=== PATIENT | female | born 1965 | race Caucasian/White ===

== ENCOUNTER 2017-07-30 13:09 | Inpatient (IN) ==
[2017-07-30] MEDS ORDERED: 0.9 % Sodium Chloride 1,000 ML IVC ONE ×3 (15:15→16:44)
[2017-07-30] MEDS ORDERED: Ipratropium/Albuterol Neb 3 ML IH ONE (15:15)
[2017-07-30] MEDS ORDERED: methylPREDNISolone 125 MG/2 ML VIAL IVP ONE (15:15)
[2017-07-30 15:39] LABS: Basophils % 0.2 %; Eosinophils # 0.1 K/mcL (0.0-0.6); Eosinophils % 0.6 %; Hematocrit 36.4 % (35.3-44.9); Hemoglobin 11.8 g/dL (11.5-15.4); Immature Granulocytes % 0.8 % (0-4); Immature Platelets 2.6 % (1.1-6.1); Lymphocytes # 1.6 K/mcL (0.6-4.6); Lymphocytes % 8.2 %; Mean Corpuscular HGB Conc 32.4 g/dL (31.6-35.5); Mean Corpuscular Hemoglobin 31.1 pg (28.0-33.3); Mean Platelet Volume 9.1 fL (9.4-12.4); Monocytes # 1.6 K/mcL (0.0-1.3); Monocytes % 8.6 %; Neutrophils # 15.5 K/mcL (1.6-8.9); Nucleated Red Blood Cells 0.1 /100 WBC (0); Platelet Count 361 K/mcL (140-400); Red Blood Count 3.79 M/mcL (3.82-4.97); Red Cell Distribution Width 12.9 % (11.5-14.5); Segmented Neutrophils % 81.6 %
[2017-07-30 15:54] LABS: Bilirubin,Urine Negative (Negative); Blood,Urine Trace (Negative); Clarity,Urine Clear (Clear); Color,Urine Yellow (Yellow); Glucose,Urine (UA) Normal (Normal); Ketones,Urine Negative (Negative); Leukocyte Esterase,Urine Negative (Negative); Nitrite,Urine Negative (Negative); Protein,Urine Negative (Neg-Trace); Specific Gravity,Urine 1.007 (1.010-1.025); Urobilinogen,Urine Normal (Normal)
[2017-07-30 15:55] LABS: BUN/Creatinine Ratio 11 (6-26); Blood Urea Nitrogen 8 mg/dL (7-20); Calcium 9.8 mg/dL (8.6-10.8); Carbon Dioxide 32 mEq/L (19-29); Chloride 95 mEq/L (98-109); Glucose 159 mg/dL (70-99); Osmolality,Calculated 286 (280-300); Potassium 3.2 mEq/L (3.5-4.5); Sodium 137 mEq/L (136-145); eGFR For African Americans > 60 (> 60); eGFR For Non-African Americans > 60 (> 60)
[2017-07-30 15:56] LABS: Bacteria,Urine None Seen per hpf (None-Few); Hyaline Casts,Urine None Seen per lpf (None-Few); RBC,Urine 0-3 per hpf (0-3); Squamous Epithelial Cell,Urine Many per lpf (None-Few); WBC,Urine 0-3 per hpf (0-3)
[2017-07-30] MEDS ORDERED: Azithromycin 500 MG in D5% in Water 250 ML IVPB ONE (16:46)
--- NOTE | 2017-07-30 17:19 | Emergency Department Note ---
Disposition Clinical Impression: Acute exacerbation of chronic obstructive airways disease Community acquired pneumonia Qualifiers: Laterality: unspecified laterality Qualified Code(s): J18.9 - Pneumonia, unspecified organism Disposition: Admitted As Inpatient Condition: Good Time of Disposition: 17:58 SOB HPI - General Chief Complaint: ED Shortness of Breath/Dyspnea Stated Complaint: acute bronchitis Time Seen by Provider: 07/30/17 15:04 Source: patient Mode of arrival: ambulatory Limitations: no limitations Nursing Notes Reviewed: Yes Vital Signs Reviewed: Yes - History of Present Illness Patient presents to the ED with the chief complaint of "I think I have bronchitis again." Patient states that she used to be a long-time smoker and quit about 3 years ago. Reports that while she was smoking. She frequently got bronchitis. Never required admission to the hospital per patient. States that about a week ago she started smoking again and since then she has developed cough and congestion. States that she feels exactly like she did before when she had bronchitis. She states that she is on several inhalers daily but has never been formally diagnosed with COPD. Reports that over the last week she has had gradually increasing shortness of breath and chest tightness. She has had subjective fever and chills. Her sputum is productive and is green to yellow. No associated chest pain other than the tightness, no abdominal pain, nausea, vomiting, diarrhea, no pain or swelling in her legs. No history of DVT, PE, or malignancy. No recent travel or surgeries. However, she did break her left foot and is in a postop shoe. - Related Data Previous Rx's Medication Instructions Recorded HYDROcodone/Acet 5/325 mg [[place] 1 tab PO Q6H PRN #10 tab 07/04/17 5-325 mg] Allergies Allergy/AdvReac Type Severity Reaction Status Date / Time No Known Allergies Allergy Verified 07/30/17 14:01 All systems ED: reviewed and negative except as stated. Cardiovascular: Denies: chest pain Respiratory: Reports: cough, dyspnea, wheezes Gastrointestinal: Denies: nausea Musculoskeletal: Denies: back pain Neurological: Denies: headache Past Medical History - Past Medical History Attestation: Yes The following information was validated with the patient. Source: patient Medical history: Reports: COPD, diabetes, hypertension Psychiatric history: Reports: no psych history [employer] history: Reports: non-contributory - Social History Smoking Status: Never smoker Smokeless Tobacco Status: No Alcohol use: Reports: rarely Drug use: Reports: none Physical Exam - General Limitations: no limitations General appearance: alert, in no apparent distress, obese - Eye Eye exam: Present: normal appearance, PERRL, EOMI - ENT ENT exam: normal exam, normal oropharynx, mucous membranes moist - Neck Neck exam: Present: normal inspection, full ROM, trachea midline - Chest Chest inspection: Present: normal inspection, symmetric chest wall rise - Respiratory Respiratory exam: Present: respiratory distress (Patient and mild respiratory distress, no accessory muscle use, very coarse breath sounds with rhonchi and wheezing throughout inspiratory and expiratory phases). Absent: normal lung sounds bilaterally - Cardiovascular Cardiovascular exam: Present: regular rate, normal rhythm, normal heart sounds - Abdominal Exam Abdominal exam: Present: soft, Non-Tender. Absent: tenderness, distention, guarding, rebound, rigidity - Extremities Exam Extremities exam: Present: normal inspection, full ROM. Absent: tenderness, pedal edema - Neurological Exam Neurological exam: Present: alert, oriented X3 - Psychiatric Psychiatric exam: Present: normal affect, normal mood - Skin Skin exam: Present: warm, dry, intact, normal color Course Course Narrative: Patient presenting with what she states is likely an exacerbation of bronchitis. However, she is borderline tachycardic and is hypoxic on room air. Started about a week ago. She does have infectious symptoms. Concern over pneumonia versus bronchitis versus PE. She is low risk, so we will use the d- dimer in addition to the rest of her workup. She will be given 2 nebs, steroids , likely will need antibiotics and admission in the hospital. D-dimer, troponin and BNP were negative. She does have a leukocytosis of 19, 000. Although her chest x-ray is clear, I do think that she clinically has pneumonia, so we will go ahead and treat her with Rocephin and azithromycin. She does also have a mildly elevated lactic acid, so we will continue with fluid resuscitation and recheck the lactic acid and a few hours. - Consultations Consultation #1: admitted to the hospitalist service Dr. Spencer Time: 17:22 Vital Signs Temperature 99.4 F 07/30/17 13:58 Pulse Rate 96 07/30/17 13:58 Respiratory Rate 20 07/30/17 13:58 Blood Pressure 115/76 07/30/17 13:58 O2 Sat by Pulse Oximetry 91 07/30/17 13:58 Temperature 99.4 F 07/30/17 13:58 Pulse Rate 94 07/30/17 17:35 Respiratory Rate 18 07/30/17 17:52 Blood Pressure 111/66 07/30/17 17:52 O2 Sat by Pulse Oximetry 92 07/30/17 17:35 Oxygen Delivery Oxygen Delivery Nasal Cannula Shortness of Breath/Dyspnea - Medical Records Medical records reviewed: Yes I reviewed the patient's medical records. - Lab Data Lab results reviewed: Yes I reviewed the patient's lab results. Result diagrams: 07/30/17 15:31 07/30/17 15:31 Lab Results 07/30/17 07/30/17 07/30/17 Range/Units 15:31 15:31 15:31 WBC 19.0 H (4.3-11.1) K/mcL RBC 3.79 L (3.82-4.97) M/mcL Hgb 11.8 (11.5-15.4) g/dL Hct 36.4 (35.3-44.9) % MCV 96.0 (83.0-100.0) fL MCH 31.1 (28.0-33.3) pg MCHC 32.4 (31.6-35.5) g/dL RDW 12.9 (11.5-14.5) % Plt Count 361 (140-400) K/mcL MPV 9.1 L (9.4-12.4) fL Immature Gran % 0.8 (0-4) % Seg Neutrophils % 81.6 % Lymphocytes % 8.2 % Monocytes % 8.6 % Eosinophils % 0.6 % Basophils % 0.2 % Neutrophils # 15.5 H (1.6-8.9) K/mcL Lymphocytes # 1.6 (0.6-4.6) K/mcL Monocytes # 1.6 H (0.0-1.3) K/mcL Eosinophils # 0.1 (0.0-0.6) K/mcL Basophils # 0.0 (0.0-0.2) K/mcL Nucleated RBCs/100 WBC 0.1 H (0) /100 WBC Immature Plt Fraction 2.6 (1.1-6.1) % D-Dimer 445 (0-500) ng/mLFEU Sodium 137 (136-145) mEq/L Potassium 3.2 L (3.5-4.5) mEq/L Chloride 95 L (98-109) mEq/L Carbon Dioxide 32 H (19-29) mEq/L BUN 8 (7-20) mg/dL Creatinine 0.76 (0.57-1.11) mg/dL Est GFR ( Amer) > 60 (> 60) Est GFR (Non-Af Amer) > 60 (> 60) BUN/Creatinine Ratio 11 (6-26) Glucose 159 H (70-99) mg/dL Calculated Osmolality 286 (280-300) Lactic Acid (0.5-2.2) mmol/L Calcium 9.8 (8.6-10.8) mg/dL Troponin I (0-0.03) ng/mL B-Natriuretic Peptide (0-100) pg/mL Urine Color (Yellow) Urine Clarity (Clear) Urine pH (5.0-8.0) pH Units Ur Specific [place] (1.010-1.025) Urine Protein (Neg-Trace) mg/dL Urine Glucose (UA) (Normal) mg/dL Urine Ketones (Negative) mg/dL Urine Blood (Negative) Urine Nitrite (Negative) Urine Bilirubin (Negative) Urine Urobilinogen (Normal) mg/dL Ur Leukocyte Esterase (Negative) Urine Microscopic RBC (0-3) per hpf Urine Microscopic WBC (0-3) per hpf Ur Squamous Epith Cells (None-Few) per lpf Urine Bacteria (None-Few) per hpf Hyaline Casts (None-Few) per lpf Ur Culture Indicated? (NO) 07/30/17 07/30/17 07/30/17 Range/Units 15:31 15:31 15:31 WBC (4.3-11.1) K/mcL RBC (3.82-4.97) M/mcL Hgb (11.5-15.4) g/dL Hct (35.3-44.9) % MCV (83.0-100.0) fL MCH (28.0-33.3) pg MCHC (31.6-35.5) g/dL RDW (11.5-14.5) % Plt Count (140-400) K/mcL MPV (9.4-12.4) fL Immature Gran % (0-4) % Seg Neutrophils % % Lymphocytes % % Monocytes % % Eosinophils % % Basophils % % Neutrophils # (1.6-8.9) K/mcL Lymphocytes # (0.6-4.6) K/mcL Monocytes # (0.0-1.3) K/mcL Eosinophils # (0.0-0.6) K/mcL Basophils # (0.0-0.2) K/mcL Nucleated RBCs/100 WBC (0) /100 WBC Immature Plt Fraction (1.1-6.1) % D-Dimer (0-500) ng/mLFEU Sodium (136-145) mEq/L Potassium (3.5-4.5) mEq/L Chloride (98-109) mEq/L Carbon Dioxide (19-29) mEq/L BUN (7-20) mg/dL Creatinine (0.57-1.11) mg/dL Est GFR ( Amer) (> 60) Est GFR (Non-Af Amer) (> 60) BUN/Creatinine Ratio (6-26) Glucose (70-99) mg/dL Calculated Osmolality (280-300) Lactic Acid 2.7 H (0.5-2.2) mmol/L Calcium (8.6-10.8) mg/dL Troponin I 0.01 (0-0.03) ng/mL B-Natriuretic Peptide 31 (0-100) pg/mL Urine Color (Yellow) Urine Clarity (Clear) Urine pH (5.0-8.0) pH Units Ur Specific [place] (1.010-1.025) Urine Protein (Neg-Trace) mg/dL Urine Glucose (UA) (Normal) mg/dL Urine Ketones (Negative) mg/dL Urine Blood (Negative) Urine Nitrite (Negative) Urine Bilirubin (Negative) Urine Urobilinogen (Normal) mg/dL Ur Leukocyte Esterase (Negative) Urine Microscopic RBC (0-3) per hpf Urine Microscopic WBC (0-3) per hpf Ur Squamous Epith Cells (None-Few) per lpf Urine Bacteria (None-Few) per hpf Hyaline Casts (None-Few) per lpf Ur Culture Indicated? (NO) 07/30/17 07/30/17 Range/Units 15:47 17:20 WBC (4.3-11.1) K/mcL RBC (3.82-4.97) M/mcL Hgb (11.5-15.4) g/dL Hct (35.3-44.9) % MCV (83.0-100.0) fL MCH (28.0-33.3) pg MCHC (31.6-35.5) g/dL RDW (11.5-14.5) % Plt Count (140-400) K/mcL MPV (9.4-12.4) fL Immature Gran % (0-4) % Seg Neutrophils % % Lymphocytes % % Monocytes % % Eosinophils % % Basophils % % Neutrophils # (1.6-8.9) K/mcL Lymphocytes # (0.6-4.6) K/mcL Monocytes # (0.0-1.3) K/mcL Eosinophils # (0.0-0.6) K/mcL Basophils # (0.0-0.2) K/mcL Nucleated RBCs/100 WBC (0) /100 WBC Immature Plt Fraction (1.1-6.1) % D-Dimer (0-500) ng/mLFEU Sodium (136-145) mEq/L Potassium (3.5-4.5) mEq/L Chloride (98-109) mEq/L Carbon Dioxide (19-29) mEq/L BUN (7-20) mg/dL Creatinine (0.57-1.11) mg/dL Est GFR ( Amer) (> 60) Est GFR (Non-Af Amer) (> 60) BUN/Creatinine Ratio (6-26) Glucose (70-99) mg/dL Calculated Osmolality (280-300) Lactic Acid 2.0 (0.5-2.2) mmol/L Calcium (8.6-10.8) mg/dL Troponin I (0-0.03) ng/mL B-Natriuretic Peptide (0-100) pg/mL Urine Color Yellow (Yellow) Urine Clarity Clear (Clear) Urine pH 7.0 (5.0-8.0) pH Units Ur Specific [place] 1.007 L (1.010-1.025) Urine Protein Negative (Neg-Trace) mg/dL Urine Glucose (UA) Normal (Normal) mg/dL Urine Ketones Negative (Negative) mg/dL Urine Blood Trace H (Negative) Urine Nitrite Negative (Negative) Urine Bilirubin Negative (Negative) Urine Urobilinogen Normal (Normal) mg/dL Ur Leukocyte Esterase Negative (Negative) Urine Microscopic RBC 0-3 (0-3) per hpf Urine Microscopic WBC 0-3 (0-3) per hpf Ur Squamous Epith Cells Many H (None-Few) per lpf Urine Bacteria None Seen (None-Few) per hpf Hyaline Casts None Seen (None-Few) per lpf Ur Culture Indicated? NO (NO) - Radiology Data Radiology results reviewed: Yes I reviewed the patient's radiology results. Chest X-Ray 07/30/17 14:24 IMPRESSION: No acute abnormality detected. D/ / Kiran Li MD / Kiran Li MD Interpreting Provider: Kiran Li MD Yael - Yael Situation: Demographics, MOA Background: Presenting Complaint, Relevant PMH, Meds, & Allergies Assessment: Vital Signs, Course and respsone to treatment, Exam Concerns, Patient/Family Expectation, Pertinant Lab Results, Outstanding Labs Recommendation: Barrier(s) to disposition, Recommendation based on pending studies, treatments, or consults [place]rad[place] Report Given to: Dr. Johanna [facility] Time: 17:58 Attestation Statement - Attestation Attestation: I examined this patient and my medical decision-making was reviewed with the Resident Physician, Dr. Iqbal. I agree with the documented findings, disposition and treatment plan as described except to the extent set forth below. Patient is a 51-year-old white female who presents to the emergency department with a one-week history of gradually worsening nasal congestion, postnasal drip , sore throat, and cough is now productive with yellow greenish sputum. Patient 's having some shortness of breath and chest tightness with these symptoms. Patient is longtime smoker who quit for a brief period of time and restarted about a week ago at the onset of these symptoms. Patient is on a number of inhalers for her breathing that are prescribed by her doctor but no formal diagnosis of COPD. Patient is hemodynamically stable on arrival, afebrile, but hypoxic on room air. Patient does not require home O2. I agree with the patient's physical exam findings as documented. She is coarse and wheezy throughout on auscultation with hoarse sounding voice but no respiratory distress. Patient received breathing treatments and steroids, IV fluids, laboratory evaluation as well as a 2 view chest x-ray. Patient with an elevated white count of 19 with a left shift and mild hyperglycemia. Patient's 2 view chest x-ray is within normal limits. Despite the normal chest x-ray despite this with the leukocytosis and clinical symptoms with hypoxia we will go ahead and treat her with antibiotics for community- acquired pneumonia continue supplemental oxygen and admit the patient secondary to her hypoxemia. Case was discussed with the hospitalist who accepted patient for admission.
[2017-07-30] MEDS ORDERED: Ondansetron 4 MG/2 ML VIAL IVP PRN (18:56)
[2017-07-30] MEDS ORDERED: *HR* HYDROcodone/Acet 5/325 mg TABLET PO PRN (18:56)
[2017-07-30] MEDS ORDERED: Naloxone 0.4 MG/ML INJ IVP PRN (18:56)
[2017-07-30] MEDS ORDERED: *HR* Morphine 2 MG/ML SYRINGE IVP PRN (18:56)
[2017-07-30] MEDS ORDERED: Benzonatate 100 MG CAPSULE PO PRN (19:03)
--- NOTE | 2017-07-30 19:16 | Internal Med History&Physical ---
<AntoniocharityDexter goldsmith - Last Filed: 07/30/17 20:14> Date of Encounter: 07/30/17 Time of Encounter: 18:00 Assessment and Plan (1) Sepsis Current visit: Yes Status: Acute Patient meets sepsis criteria based on WBC of 19.0, HR of 96 bpm, respiratory rate >20. Initial lactic acid 2.7. Patient received 3 boluses of IV fluids in the ED. Will continue IV 0.9 NS @ 125 mL/HR. Timed lactic acids ordered per sepsis protocol. IVPB ceftriaxone 1,000 mg and azithromycin 500 mg daily ordered for infection coverage. Blood cultures x2 and sputum culture ordered. Will adjust abx coverage based on culture results and sensitivity. Platelets 361. INR and APTT ordered. Monitor follow-up labs and patient for signs of increasing infection. Stair-step pain medication for pain management. Qualifiers: Sepsis type: sepsis due to unspecified organism Qualified Code(s): A41.9 - Sepsis, unspecified organism (2) Community acquired pneumonia Current visit: Yes Status: Acute Patient presents with acute SOB and dyspnea for past five days. CAP versus COPD exacerbation. WBC 19.0. CXR shows no acute process. CT of the chest ordered. IVPB ceftriaxone 1,000 mg daily and azithromycin 500 mg daily ordered for infection coverage. Sputum culture ordered. Will adjust abx coverage based on sputum and blood culture results. DuoNebs Q4. Tessalon 100 mg TID. Solumedrol 40 mg Q12. Supplemental O2 w/titration and SpO2 monitoring. Qualifiers: Laterality: unspecified laterality Qualified Code(s): J18.9 - Pneumonia, unspecified organism (3) Acute exacerbation of chronic obstructive airways disease Current visit: Yes Status: Acute Patient presents with SOB/dyspnea related to current dx of CAP versus COPD exacerbation. DuoNebs Q4 scheduled. Tessalon 100 mg TID for cough. Solumedrol 40 mg IVP Q12. Supplemental O2 with titration if SpO2 <92% and continuous SpO2 monitoring. Monitor VS and respiratory status. Will consider ABG if patient becomes hypoxic. (4) Elevated CO2 level Current visit: Yes Status: Acute Acute elevated CO2 level of 32 due to current hypoxemia related to CAP versus acute exacerbation of COPD. Supplemental O2 with titration and continuous SpO2 monitoring. Will consider BiPap and stat ABG if patient becomes hypoxic. Monitor patient's VS and respiratory status. (5) Hypokalemia Current visit: Yes Status: Acute Acute hypokalemia with potassium level of 3.2 on admission. PO potassium chloride 40 mEq daily to address hypokalemia and current hypochloremia level of 95. Monitor follow-up labs. (6) Elevated lactic acid level Current visit: Yes Status: Acute Lactic acid of 2.7 on admission. Timed lactic acids ordered per sepsis protocol. (7) Diabetes Current visit: Yes Status: Chronic Hx of chronic diabetes controlled by oral anti-hyperglycemic medications. Will hold patient's metformin and administer low-dose correction insulin sliding scale and hypoglycemic protocol. BG checks ACHS. A1c ordered in a.m. labs. Qualifiers: Diabetes mellitus type: type 2 Diabetes mellitus complication status: with unspecified complications Diabetes mellitus exterminator helper insulin use: without exterminator helper use Qualified Code(s): E11.8 - Type 2 diabetes mellitus with unspecified complications (8) HTN (hypertension) Current visit: Yes Status: Chronic Hx of chronic HTN but patient does not take anti-hypertensive medications at this time. Monitor patient and VS and will add Lopressor if patient becomes hypertensive. Qualifiers: Hypertension type: essential hypertension Qualified Code(s): I10 - Essential (primary) hypertension (9) DVT prophylaxis Current visit: Yes Status: Acute Heparin 5,000 units SQ Q8 for DVT prophylaxis. Monitor patient for signs of bleeding. Internal Medicine - H&P: HPI Chief complaint: Shortness of breath/Dyspnea Admitted From: Emergency Dept Plans for Post Hospital Care: Home History of present illness: Mrs. Wolfe is a 51 year old female with medical history of COPD, diabetes controlled with oral antihyperglycemic medications, and hypertension presents from the ED with chief complaint of shortness of breath and dyspnea for the past 5 days. Patient states she was a former smoker smoking 1-2 PPD and quit 4 years ago but recently started smoking 1-2 cigarettes per day. She reports that she's had these same symptoms before when she had bronchitis. She uses inhalers at home and takes breathing treatments PRN. Denies O2 use at home. Denies hx of PE or DVT. Reports sputum production that is greenish yellow. Patient reports SOB, fever, and chills but denies recent illness, nausea, vomiting, chest pain, palpitations, abdominal pain, unusual bleeding, vision changes, diarrhea, constipation, edema, lightheadedness, dizziness, pre-syncope, or syncope. On admission, patient's vital signs include temperature of 99.4F, heart rate 96 bpm , respiratory rate of 20, BP of 115/76, and SPO2 of 91% on 2 L nasal cannula. Pertinent abnormal labs include WBC of 19.0, potassium 3.2, chloride of 95, CO2 of 32, and glucose of 159. Initial lactic acid is 2.7 and troponin is 0.01. 1- View CXR today shows no acute abnormality. Upon assessment, patient is alert and oriented 3 and states she is having shortness of breath. Heart rate is tachycardic. Lungs have bilateral wheezes, more prominent in the right lung on auscultation. Patient also has productive cough. Patient is hemodynamically stable and reports moderate respiratory distress at this time information today from patient, family, chart review, and previous medical records. Mrs. Wolfe currently meet sepsis criteria based on WBC, tachycardia, and respiratory rate and is at high risk for sepsis and further morbidity based on current symptoms, risk factors, and history and will be placed as inpatient status. Time spent with patient and family >40 minutes. Past Med Surg Social Fam HX - Past Medical History Source: patient, old records reviewed, obtained from family Medical history: COPD, diabetes, hypertension Psychiatric history: no psych history - Social History Smoking Status: Former smoker Packs per day: 1-2 PPD, Reports she now smokes 1-2 cigarettes per day Smokeless Tobacco Status: No Alcohol use: rarely Drug use: none Occupational status: employed Current living situation: Home, With Family Activity Level: Independent ambulation, Very active Recent Out of Country Travel Within the Last 8 Weeks: No Exposure or Possible Exposure to Illness During Travel: No - Family History Father Race: Family Member Ethnicity: Non- Living Status: Age at : 32 Cause of : Accident Mother Race: Family Member Ethnicity: Non- Living Status: Still Living Hx Family Cardiac Disorders: Yes (Afib, HTN) Hx Family Endocrine Disorder: Yes (DM) Hx Family Neuromuscular Disorders: Yes (Murphy's Palsy) Brother Race: Family Member Ethnicity: Non- Living Status: Still Living Hx Family Cardiac Disorders: Yes (HTN) Hx Family Endocrine Disorder: Yes (DM) Grandmother Race: Family Member Ethnicity: Non- Living Status: (85) Age at : 85 Cause of : [place] Hx Family Cardiac Disorders: Yes ([place], HD, HTN) Grandfather Race: Family Member Ethnicity: Non- Living Status: Age at : 70 Cause of : [place] Hx Family Cardiac Disorders: Yes ([place], HTN, CAD) Hx Family Respiratory Disorders: Yes (COPD) Internal Medicine - H&P: Meds HYDROcodone/Acet 5/325 mg [Dillon 5-325 mg] 1 tab PO Q6H PRN #10 tab 07/04/17 [Rx ] 3 Allergy/AdvReac Type Severity Reaction Status Date / Time No Known Allergies Allergy Verified 07/30/17 14:01 All Systems PM: A 10-system review of systems was performed and is negative for pertinent findings except as documented above in the HPI. - Constitutional Constitutional: as per HPI, chills, fever(s), no night sweats - EENT Eyes: no change in vision, no discharge, no pain, no photophobia Ears: no ear discharge, no ear pain, no tinnitus Nose, mouth and throat: no dysphagia, no nasal discharge, no neck pain, no sore throat - Breasts Breasts: as per HPI - Cardiovascular Cardiovascular ROS IM: as per HPI, dyspnea, dyspnea on exertion, irregular heart rhythm (Tachycardia ), no chest pain, no diaphoresis, no lightheadedness, no palpitations, no syncope - Respiratory Respiratory: as per HPI, cough, dyspnea, dyspnea on exertion, wheezing, chest congestion, change in phlegm color - Gastrointestinal Gastrointestinal: no abdominal pain, no diarrhea, no hematemesis, no hematochezia, no melena, no nausea, no vomiting - Genitourinary Genitourinary: no change in urinary stream, no dysuria, no flank pain, no hematuria Menstruation: as per HPI - Musculoskeletal Musculoskeletal ROS IM: no numbness, no tingling - Integumentary Integumentary IM: no rash, no unusual bruising - Neurological Neurological ROS: no confusion, no convulsions, no focal weakness, no numbness, no tingling, no tremor(s) - Psychiatric Psychiatric: as per HPI - Endocrine Endocrine IM: as per HPI - Hematologic/Lymphatic Hematologic/Lymphatic: no easy bruising - Allergic/Immunologic Allergic/Immunologic: as per HPI - Constitutional Vitals: Temp Pulse Resp BP Pulse Ox 98.9 F 100 18 107/67 91 07/30/17 19:00 07/30/17 19:00 07/30/17 19:00 07/30/17 19:00 07/30/17 19:00 General appearance: Present: cooperative, mild distress (Mild to moderate respiratory distress), A&O X 3, pleasant, obese, answers questions appropriately - Head Head exam: Present: atraumatic, normocephalic - Eye Eye exam: Present: PERRL, conjuntiva pink, sclera anicteric Pupils: Present: PERRL - ENT ENT exam: Present: normal exam, normal external ear exam - Neck Neck exam general surgery: Present: normal inspection, supple, trachea midline. Absent: lymphadenopathy - Respiratory Respiratory exam: Present: accessory muscle use, wheezes (Bilaterally, worse in right lung lobes), tachypnea - Cardiovascular Cardiovascular exam: Present: tachycardia - GI/Abdominal GI/Abdominal exam: Present: normal bowel sounds, soft, no peritoneal signs. Absent: distended, tenderness - Rectal Rectal exam: Present: deferred - Additional comments: exam deferred. - Extremities Exam Extremities exam: Present: warm, radial pulses palpable and symmetrical. Absent : calf tenderness, cyanotic, pedal edema - Back Exam Back exam: Present: normal inspection - Neurological Exam Neurological exam: Present: CN II-XII intact, oriented X3, no focal deficits. Absent: pronater drift, facial droop, speech deficit - Psychiatric Psychiatric exam: Present: normal affect, normal mood - Skin Skin exam: Present: dry, intact Internal Med - H&P Results - Labs CBC & Chem 7: 07/30/17 15:31 07/30/17 15:31 - Diagnostic Studies Chest x-ray Additional comments: Impressions Chest X-Ray 07/30/17 14:24 IMPRESSION: No acute abnormality detected. D/ / Kiran Li MD / Kiran Li MD Interpreting Provider: Kiran Li MD <Temo Hernandez - Last Filed: 07/30/17 23:57> Date of Encounter: 07/30/17 Internal Medicine - H&P: HPI History of present illness: Ms. Wolfe is a 51 year old female All Systems PM: A 10-system review of systems was performed and is negative for pertinent findings except as documented above in the HPI. - Constitutional Vitals: Temp Pulse Resp BP Pulse Ox 98.4 F 109 18 117/75 97 07/30/17 23:48 07/30/17 23:48 07/30/17 23:48 07/30/17 23:48 07/30/17 23:48 Internal Med - H&P Results - Labs CBC & Chem 7: 07/30/17 15:31 07/30/17 15:31 - Impressions ITS Impressions Chest CT 07/30/17 19:17 IMPRESSION: 1. Patchy ground-glass opacity within the periphery of the lungs bilaterally, nonspecific, but suggestive of pneumonitis. Given the presence of the centrilobular tree-in-bud nodules, bronchiolitis is considered as well. This process should be followed to resolution. D/ / Kiran Li MD / Kiran Li MD Interpreting Provider: Kiran Li MD - Attending Attestation I examined this patient and my medical decision-making was reviewed with the CLINICAL ASSOCIATE. I agree with the documented findings, disposition and treatment plan as described except to the extent set forth below. Patient is a 51-year-old female with past medical history of COPD, diabetes and hypertension. She presents to the ED with complaints of shortness of breath. She also complains of productive cough with yellow colored sputum. She states symptoms have been worsening over the past 5 days. Workup shows elevated white count and CT chest shows patchy groundglass opacities bilaterally. Possible pneumonitis. Patient is on DuoNeb breathing treatment and on empiric IV antibiotics. Patient is being admitted for community acquired pneumonia and COPD exacerbation. Patient has been explained about her condition and plan of care in detail. She understood and agreed. No unanswered questions. Heart rate 109, pressure 117/75, O2 sat 97% on 3 L O2. Heart S1-S2 positive. Lungs bilateral air entry with bilateral extensive wheezing. Abdomen soft nontender. External visual pulses strong were no edema. Neurological awake and alert and oriented.
[2017-07-30] MEDS ORDERED: Dextrose Gel 15 GM PO PRN ×2 (19:42)
[2017-07-30] MEDS ORDERED: D5% in Water 1,000 ML IVC PRN (19:42)
[2017-07-30] MEDS ORDERED: *HR* Dextrose 50 % in Water (Syg) 50 ML SYRINGE IVP PRN (19:42)
[2017-07-30] MEDS: Ipratropium/Albuterol Neb 3 ML IH SCH ×3 (19:53→23:20)
[2017-07-30] MEDS: Pantoprazole 40 MG VIAL IVP SCH (20:10)
[2017-07-30] MEDS: 0.9 % Sodium Chloride 1,000 ML IVC SCH (20:16)
[2017-07-30] MEDS: Insulin LISPRO 300 UNITS/3 ML VIAL SQ SCH (20:19)
[2017-07-30] MEDS: *HR* Heparin 5,000 UNIT/ML VIAL SQ SCH (23:15)
[2017-07-31] MEDS: Ipratropium/Albuterol Neb 3 ML IH SCH ×5 (03:38→20:08)
[2017-07-31 04:00] LABS: Basophils % 0.2 %; Hematocrit 34.6 % (35.3-44.9); Hemoglobin 11.3 g/dL (11.5-15.4); Immature Granulocytes % 2.5 % (0-4); Lymphocytes # 0.8 K/mcL (0.6-4.6); Lymphocytes % 4.9 %; Mean Corpuscular HGB Conc 32.7 g/dL (31.6-35.5); Mean Platelet Volume 9.4 fL (9.4-12.4); Monocytes # 0.4 K/mcL (0.0-1.3); Monocytes % 2.6 %; Neutrophils # 14.6 K/mcL (1.6-8.9); Platelet Count 325 K/mcL (140-400); Red Blood Count 3.53 M/mcL (3.82-4.97); Red Cell Distribution Width 12.9 % (11.5-14.5); Segmented Neutrophils % 89.8 %
[2017-07-31 04:18] LABS: Alanine Aminotransferase 23 Units/L (0-55); Albumin/Globulin Ratio 0.7 (1.1-2.2); Alkaline Phosphatase 79 Units/L (38-126); Aspartate Amino Transferase 15 Units/L (5-34); BUN/Creatinine Ratio 7 (6-26); Bilirubin,Total 0.2 mg/dL (0.2-1.2); Blood Urea Nitrogen 6 mg/dL (7-20); Calcium 9.5 mg/dL (8.6-10.8); Carbon Dioxide 28 mEq/L (19-29); Chloride 99 mEq/L (98-109); Chol/HDL Ratio 4.3 (0-4.9); Cholesterol 170 mg/dL (< 200); Globulin 4.3 g/dL (2.4-3.5); Glucose 330 mg/dL (70-99); HDL Cholesterol 40 mg/dL (40-59); LDL Cholesterol,Calculated 109 mg/dL (0-99); Magnesium 1.4 mg/dL (1.6-2.6); Osmolality,Calculated 296 (280-300); Potassium 3.2 mEq/L (3.5-4.5); Sodium 138 mEq/L (136-145); Total Protein 7.3 g/dL (6.0-8.3); Triglycerides 104 mg/dL (< 150); eGFR For African Americans > 60 (> 60); eGFR For Non-African Americans > 60 (> 60)
[2017-07-31] MEDS: Acetaminophen 325 MG TABLET PO PRN (04:20)
[2017-07-31] MEDS: 0.9 % Sodium Chloride 1,000 ML IVC SCH ×3 (04:23→22:30)
[2017-07-31] MEDS: MethylPREDNISolone 40 MG/ML VIAL IVP SCH ×2 (05:09→18:07)
[2017-07-31] MEDS: *HR* Heparin 5,000 UNIT/ML VIAL SQ SCH ×2 (09:43→18:07)
[2017-07-31] MEDS: Insulin LISPRO 300 UNITS/3 ML VIAL SQ SCH ×4 (09:43→22:25)
[2017-07-31] MEDS: Pantoprazole 40 MG VIAL IVP SCH (09:43)
[2017-07-31] MEDS ORDERED: Albuterol 2.5 MG/3 ML NEBULIZER IH PRN (12:09)
[2017-07-31] MEDS: Magnesium Oxide 400 MG TABLET PO SCH (13:25)
--- NOTE | 2017-07-31 16:42 | Internal Med Progress Note ---
Date of Encounter: 07/31/17 Time of Encounter: 14:20 - Assessment and plan (1) Acute exacerbation of chronic obstructive airways disease Current Visit: Yes Status: Acute Assessment and plan: Patient presented to the emergency department with acute shortness of breath for 5 days prior to arrival. Patient stated that she had to go to a concert, so that delayed her presentation to the hospital. Lungs are clear, but diminished. She is requiring supplemental 02 to maintain sats >92%. Continue telemetry, Mireille perez, Solumedrol 40gm IVP bid. Monitor VS, continous pulse ox. (2) Community acquired pneumonia Current Visit: Yes Status: Acute Assessment and plan: CT chest showed pneumonitis/bronchiolitis. Chest x-ray is negative. Pt reports increasing shortness of breath and dyspnea for 5 days. Her lungs are clear and diminished, she is requiring supplemental oxygen. She is being treated with Rocephin IV 1 g daily Zithromax 500 mg IV daily ordered for infection coverage. Sputum culture is ordered, blood cultures are pending. We will continue IV antibiotics due to elevated white count, elevated lactic. Continue IV antibiotics Oxygen as needed to maintain sats greater than 92% Continue telemetry and continuous pulse ox Cultures pending Continue to monitor labs, respiratory status, vital signs Qualifiers: Laterality: unspecified laterality Qualified Code(s): J18.9 - Pneumonia, unspecified organism (3) Sepsis Current Visit: Yes Status: Acute Assessment and plan: Patient with leukocytosis, patient has been tachycardic, however pulse has returned to within normal limits at 96. Respirations have been 16-17. Blood pressure is within normal limits. Patient also has an elevated lactic, 2.6 today. Patient received 3 L 0.9 normal saline bolus in the emergency department. Continue to monitor patient's condition and labs. Vital signs every 4 hours with temperature. Continue IV antibiotics, oxygen, steroids. Qualifiers: Sepsis type: sepsis due to unspecified organism Qualified Code(s): A41.9 - Sepsis, unspecified organism (4) Diabetes Current Visit: Yes Status: Chronic Assessment and plan: Oral home medications and did not help. Continue sliding scale insulin, Accu- Cheks before meals at bedtime, diabetic diet. Qualifiers: Diabetes mellitus type: type 2 Diabetes mellitus complication status: with unspecified complications Diabetes mellitus local intermodal truck driver insulin use: without penitentiary use Qualified Code(s): E11.8 - Type 2 diabetes mellitus with unspecified complications (5) HTN (hypertension) Current Visit: Yes Status: Chronic Assessment and plan: Well-controlled in inpatient setting. Continue home medications. Vital signs every 4 hours. Qualifiers: Hypertension type: essential hypertension Qualified Code(s): I10 - Essential (primary) hypertension (6) Hypokalemia Current Visit: Yes Status: Acute Assessment and plan: Treating with potassium chloride 40 mEq daily. Patient has no nausea, vomiting , diarrhea, excessive sweating. Repeat labs in the a.m. (7) Elevated CO2 level Current Visit: Yes Status: Acute Assessment and plan: Elevated CO2 on ABG on arrival. Patient is alert and oriented and is no distress. She is not requiring BiPAP. She is requiring supplemental oxygen but is in no distress. Vital signs and respiratory status are stable. (8) Elevated lactic acid level Current Visit: Yes Status: Acute (9) DVT prophylaxis Current Visit: Yes Status: Acute Assessment and plan: Heparin subcutaneous. - Subjective Interval history: Patient was seen and assessed at 1420. Patient multiple family members in the room, questions were answered. Patient is pleasant, alert, awake, oriented and she reports feeling sick for about 2 days prior to admission. She looks well and states that she feels well, she states that she needs to get back to work. We will continue to monitor her for sepsis and discharged when appropriate. - Constitutional Vitals: Temp Pulse Resp BP Pulse Ox 98.4 F 96 16 134/65 98 07/31/17 16:09 07/31/17 16:09 07/31/17 16:09 07/31/17 16:09 07/31/17 16:09 General appearance: Present: cooperative, mild distress (Mild to moderate respiratory distress), A&O X 3, pleasant, obese, answers questions appropriately - Head Head exam: Present: atraumatic, normal inspection, normocephalic - Eye Eye exam: Present: normal appearance, conjuntiva pink, sclera anicteric - Neck Neck exam general surgery: Present: supple, trachea midline. Absent: lymphadenopathy, tenderness - Respiratory Respiratory exam: Present: CTAB. Absent: accessory muscle use, rales, respiratory distress, rhonchi, wheezes - Cardiovascular Cardiovascular exam: Present: RRR, +S1, +S2. Absent: diastolic murmur, gallop, rubs, systolic murmur - GI/Abdominal GI/Abdominal exam: Present: hepatomegaly, normal bowel sounds, soft, no peritoneal signs. Absent: distended, tenderness - Extremities Exam Extremities exam: Present: normal capillary refill, normal inspection, warm, radial pulses palpable and symmetrical. Absent: calf tenderness, cyanotic, pedal edema - Neurological Exam Neurological exam: Present: alert, oriented X3, no focal deficits. Absent: facial droop, speech deficit - Skin Skin exam: Present: dry, intact, normal color, warm. Absent: rash Internal Medicine: Result - Labs CBC & Chem 7: 07/31/17 03:14 07/31/17 03:14 Labs: Short CBC 07/31/17 Range/Units 03:14 WBC 16.3 H (4.3-11.1) K/mcL Hgb 11.3 L (11.5-15.4) g/dL Hct 34.6 L (35.3-44.9) % Plt Count 325 (140-400) K/mcL Neutrophils # 14.6 H (1.6-8.9) K/mcL BMP 07/31/17 03:14 Sodium 138 Potassium 3.2 L Chloride 99 Carbon Dioxide 28 BUN 6 L Creatinine 0.82 Glucose 330 H Calcium 9.5 Liver Function 07/31/17 Range/Units 03:14 Total Bilirubin 0.2 (0.2-1.2) mg/dL AST 15 (5-34) Units/L ALT 23 (0-55) Units/L Alkaline Phosphatase 79 (38-126) Units/L Albumin 3.0 L (3.5-5.0) g/dL - ABG Interpretation ABG results: PT/INR, D-dimer D-Dimer 445 ng/mLFEU (0-500) 07/30/17 15:31 - Impressions Impressions Chest CT 07/30/17 19:17 IMPRESSION: 1. Patchy ground-glass opacity within the periphery of the lungs bilaterally, nonspecific, but suggestive of pneumonitis. Given the presence of the centrilobular tree-in-bud nodules, bronchiolitis is considered as well. This process should be followed to resolution. D/ / Kiran Li MD / Kiran Li MD Interpreting Provider: Kiran Li MD Consult Discharge Plan - Plan Referrals: Joslyn Burt MD [Primary Care Provider] -
[2017-07-31] MEDS ORDERED: Azithromycin 500 MG in D5% in Water 250 ML IVPB SCH (17:00)
--- NOTE | 2017-07-31 17:00 | Electrocardiograph Report ---
[place] [id number] Test Date: 2017-07-30 Pat Name: Patrice Wolfe Department: 103 Room: 3B33 Gender: F Acute Dialysis Nurse: EKP : 1965 Requested By: Thuan Iqbal Order Number: [id number] Reading MD: Lakesha Fraga Measurements Intervals [place] Rate: 90 P: 38 MA: 139 QRS: 50 QRSD: 100 T: 65 QT: 368 QTc: 416 Interpretive Statements SINUS RHYTHM Electronically Signed On 07-31-2017 16:58:49 EDT by Lakesha Fraga
[2017-08-01] MEDS ORDERED: ALPRAZolam 0.5 MG TABLET PO ONE (00:16)
[2017-08-01] MEDS: Ipratropium/Albuterol Neb 3 ML IH SCH ×4 (00:26→11:40)
[2017-08-01] MEDS: *HR* Heparin 5,000 UNIT/ML VIAL SQ SCH ×2 (01:56→08:23)
[2017-08-01] MEDS: MethylPREDNISolone 40 MG/ML VIAL IVP SCH (06:58)
[2017-08-01] MEDS: Acetaminophen 325 MG TABLET PO PRN (07:05)
[2017-08-01] MEDS: 0.9 % Sodium Chloride 1,000 ML IVC SCH (07:11)
[2017-08-01] MEDS: Insulin LISPRO 300 UNITS/3 ML VIAL SQ SCH ×2 (08:22→14:12)
[2017-08-01] MEDS: Magnesium Oxide 400 MG TABLET PO SCH (08:23)
[2017-08-01] MEDS: Pantoprazole 40 MG VIAL IVP SCH (08:23)
[2017-08-01] MEDS ORDERED: Promethazine/Codeine Oral Sryup 5 ML UDC PO PRN (08:44)
[2017-08-01 10:13] LABS: Adenovirus Not Detected (Not Detect); Coronavirus 229E Not Detected (Not Detect); Coronavirus HKU1 Not Detected (Not Detect); Coronavirus NL63 Not Detected (Not Detect); Coronavirus OC43 Not Detected (Not Detect); Human Metapneumovirus Not Detected (Not Detect); Human Rhinovirus/Enterovirus ***DETECTED*** (Not Detect); Influenza A Subtype 2009 H1 Not Detected (Not Detect); Influenza A Untypeable Not Detected (Not Detect); Influenza B Not Detected (Not Detect); Parainfluenza Virus 1 Not Detected (Not Detect); Parainfluenza Virus 2 Not Detected (Not Detect)
[2017-08-01 10:14] LABS: Bordetella Pertussis Not Detected (Not Detect); Chlamydophila pneumoniae Not Detected (Not Detect); Mycoplasma pneumoniae Not Detected (Not Detect); Parainfluenza Virus 3 Not Detected (Not Detect); Parainfluenza Virus 4 Not Detected (Not Detect); Respiratory Syncytial Virus Not Detected (Not Detect)
[2017-08-01 11:52] VITALS: BP 145/75
--- NOTE | 2017-08-01 13:48 | Discharge Summary ---
Date of Encounter: 08/01/17 Time of Encounter: 10:15 - Discharge Diagnosis (1) Acute exacerbation of chronic obstructive airways disease Priority: Primary Status: Acute (2) Community acquired pneumonia Priority: Secondary Status: Acute Qualifiers: Laterality: unspecified laterality Qualified Code(s): J18.9 - Pneumonia, unspecified organism (3) Sepsis Priority: Secondary Status: Acute Qualifiers: Sepsis type: sepsis due to unspecified organism Qualified Code(s): A41.9 - Sepsis, unspecified organism (4) Diabetes Priority: Secondary Status: Chronic Qualifiers: Diabetes mellitus type: type 2 Diabetes mellitus complication status: with unspecified complications Diabetes mellitus termite treater helper insulin use: without correction use Qualified Code(s): E11.8 - Type 2 diabetes mellitus with unspecified complications (5) HTN (hypertension) Priority: Secondary Status: Chronic Qualifiers: Hypertension type: essential hypertension Qualified Code(s): I10 - Essential (primary) hypertension (6) Hypokalemia Priority: Secondary Status: Acute - Discharge Medications Prescriptions: Promethazine/Codeine [Phenergan/Codeine] 5 ml PO Q4HR PRN #200 ml PRN Reason: Cough levoFLOXacin [Levofloxacin] 500 mg PO DAILY #10 tablet predniSONE [PredniSONE] 10 mg PO DAILY 8 Days tablet Home Medications: Albuterol Neb [Proventil Neb] 2.5 mg IH Q4HR PRN 07/31/17 [History] Albuterol Sulfate [Albuterol Inhaler] 2 puff IH Q4-6H PRN 07/31/17 [History] Atenolol [Tenormin] 100 mg PO DAILY 07/31/17 [History] Atorvastatin [Lipitor] 10 mg PO HS 07/31/17 [History] BuPROPion XL (24 HR) [Wellbutrin Xl] 300 mg PO DAILY 07/31/17 [History] Budesonide/Formoterol 80/4.5 [Symbicort 80/4.5] 2 puff IH BID 07/31/17 [History ] Lifitegrast [Xiidra] 1 drop OP BID 07/31/17 [History] Pramipexole Di-HCl [Pramipexole Dihydrochloride] 0.125 mg PO HS 07/31/17 [ History] Valsartan/Hydrochlorothiazide [Diovan Hct 80-12.5 mg Tablet] 1 tab PO DAILY 12/16 [History] Promethazine/Codeine [Phenergan/Codeine] 5 ml PO Q4HR PRN #200 ml 08/01/17 [Rx] levoFLOXacin [Levofloxacin] 500 mg PO DAILY #10 tablet 08/01/17 [Rx] metFORMIN [Glucophage] 1,000 mg PO BID #60 08/01/17 [Rx] predniSONE [PredniSONE] 10 mg PO DAILY 8 Days tablet 08/01/17 [Rx] Allergies/Adverse Reactions: 3 Allergy/AdvReac Type Severity Reaction Status Date / Time No Known Allergies Allergy Verified 07/30/17 14:01 Procedures/tests Complete & Pending: Procedures Performed prior 72 hours Category Date Time Status CT chest wo con [CT] Routine Cat Scan 07/30/17 19:17 Completed Date of admission: 07/30/17 18:56 Primary care physician: Joslyn Dunn Consults: 08/01/17 10:35 Consult to Business Practices Officer [CONS] Routine Reason for SW Consult: she qualified for bi-pap last night Discharging clinician: Enrique Hopson Anticipated date of discharge: 08/01/17 - Patient Status Disposition: Home, Self-Care Condition: Good Functional capacity at discharge: independent ambulation Overall status at discharge: patient is progressing back to baseline - Ambulatory Orders Ambulatory Orders: CT chest wo con [CT] Time Frame: 1 Month, Facility: [facility], Location: Radiology - Discharge Instructions Instructions: Sepsis (DC) Follow Up With: Joslyn Burt MD [Primary Care Provider] - (In 1-2 weeks) Cristina Figueroa MD [Partnered Physician] - (In 1-2 weeks) - Diet and Activity Activity: increase activity as tolerated Diet: diabetic diet, low salt diet Hospital course: Ms. Wolfe is a 51 year old female patient with history of COPD, diabetes mellitus type 2, who was admitted here with acute exacerbation of COPD and bilateral pneumonitis. She was treated with steroids, antibiotics, bronchodilators. Her symptoms have improved since admission. She is now doing much better and is stable for discharge home on a steroid taper and antibiotic. She was evaluated for home oxygen and did qualify for home oxygen. She will be provided with a prescription for home oxygen. Patient had quit smoking about 4 years ago and was weeping instead to recently when she began smoking cigarettes again. She is currently smoking 1-2 cigarettes per day. She has been counseled to quit smoking. CT scan of the chest done here showed presence of bilateral pneumonitis. She did have centrilobular tree-in-bud nodules concerning for bronchiolitis. She is recommended to have a repeat CT scan of the chest as receive this resolves. I will also have her follow up with pulmonology as outpatient. Her respiratory infection panel was positive for rhinovirus which most likely is the contributing organism for her pneumonitis. Her blood sugars have been elevated here in the low 200s. Most likely due to use of IV steroids. I am increasing her metformin dosage to 1000 mg by mouth daily. - Time Spent with Patient Total time spent providing and/or coordinating discharge services: Greater than 30 minutes (35 min) - Constitutional Vitals: Temp Pulse Resp BP Pulse Ox 97.5 F L 89 17 145/75 98 08/01/17 11:47 08/01/17 11:47 08/01/17 11:47 08/01/17 11:47 08/01/17 11:58 General appearance: Present: cooperative, A&O X 3, pleasant, obese, answers questions appropriately - Neck Neck exam general surgery: Present: supple, trachea midline. Absent: lymphadenopathy - Respiratory Respiratory exam: Present: CTAB. Absent: accessory muscle use, rales, rhonchi, wheezes - Cardiovascular Cardiovascular exam: Present: RRR, +S1, +S2. Absent: diastolic murmur, gallop, rubs, systolic murmur - GI/Abdominal GI/Abdominal exam: Present: normal bowel sounds, soft, no peritoneal signs. Absent: distended, tenderness - Extremities Exam Extremities exam: Present: warm, radial pulses palpable and symmetrical. Absent : calf tenderness, cyanotic, pedal edema
== END 2017-08-01 14:58 | disposition home or self-care (01) | DRG 871 ==
LOC: EMEROO 13:09 → 3BNU 13:09 → SUATTDRO 18:56
PROVIDERS: ADMIT Internal Medicine; ATTEND Internal Medicine